=== PATIENT | male | born 1990 | race Hispanic/Latino ===

== ENCOUNTER 2019-07-13 17:55 | Emergency (ER) | payer SELFPAY ==
[2019-07-13] MEDS ORDERED: LORazepam 2 MG/ML VIAL ONE (18:16)
[2019-07-13] MEDS ORDERED: NA CHLORIDE 0.9% 1,000 ML ONE (18:16)
[2019-07-13] MEDS ORDERED: THIAMINE 200 MG/2 ML INJ ONE (18:16)
[2019-07-13 18:35] LABS: Absolute Lymphocytes (CBC) 2.2 K/uL (0.7-4.9); Basophils % 0.8 % (0-1.3); Hematocrit 46.7 % (39.6-49.0); Lymphocytes % 29.9 % (15.3-44.8); MPV 8.7 fL (7.6-11.3); RBC Red Blood Cell Count 5.41 M/uL (4.33-5.43)
[2019-07-13 18:53] LABS: Urine Blood TRACE (NEG); Urine Glucose NEGATIVE (NEG); Urine Protein 2+ (NEG); Urine pH 5.5 (5.0-7.0)
[2019-07-13 18:57] LABS: ALT/SGPT 44 U/L (12-78); AST/SGOT 24 U/L (15-37); Albumin 3.7 g/dL (3.4-5.0); Alkaline Phosphatase 74 U/L (45-117); BUN Blood Urea Nitrogen 9 mg/dL (7-18); Bicarbonate 26 mmol/L (21-32); Bilirubin Direct < 0.1 mg/dL (0-0.2); Bilirubin Total 0.4 mg/dL (0.2-1.0); Glucose Level 125 mg/dL (74-106); Potassium 3.4 mmol/L (3.5-5.1); Protein, Total 7.7 g/dL (6.4-8.2); Sodium Level 141 mmol/L (136-145)
--- NOTE | 2019-07-13 19:01 | ER ---
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 Coronavirus screen: Proceed with normal triage. Patient denies a cough. Patient denies shortness of breath or difficulty breathing. Patient denies measured and/or subjective temperature greater than 100.4F prior to today's visit. Patient denies travel on a cruise ship or to a country the [facility] currently lists as an affected area. Patient denies contact with known and/or suspected case of COVID-19. Ebola Screen: Patient denies travel to an Ebola-affected area in the 21 days before illness onset. Initial Sepsis Screen: Does the patient meet any 2 criteria? RR > 20 per min. HR > 90 bpm. Does the patient have a suspected source of infection? No. Patient's initial sepsis screen is negative. Risk Assessment: Do you want to hurt yourself or someone else? Patient reports no desire to harm self or others. Onset of symptoms was July 13, 2019. 18:04 Acuity: LEIDA 3 ll1 Historical: - Allergies: 18:06 No Known Allergies; ll1 - Social history:: Smoking status: Patient denies any tobacco usage or history of. Patient uses alcohol, only on a social basis. Patient/guardian denies using street drugs. Screenin:13 Abuse screen: Denies threats or abuse. Nutritional screening: No deficits noted. Tuberculosis screening: No symptoms or risk factors identified. Fall Risk None identified. Assessment: 18:15 General: Appears uncomfortable, Behavior is calm, cooperative. Pain: Denies pain. Neuro: Level of Consciousness is awake, alert, Oriented to person, place, time, situation. Cardiovascular: Heart tones S1 S2 present Capillary refill < 3 seconds Patient's skin is warm and dry. Rhythm is regular. Respiratory: Airway is patent Respiratory effort is even, unlabored, Respiratory pattern is regular, symmetrical. GI: Bowel sounds present X 4 quads. :. : No signs and/or symptoms were reported regarding the genitourinary system. EENT: No signs and/or symptoms were reported regarding the EENT system. Derm: No signs and/or symptoms reported regarding the dermatologic system. Musculoskeletal: No signs and/or symptoms reported regarding the musculoskeletal system. Vital Signs: 18:04 BP 218 / 199; Pulse 97; Resp 22; Pulse Ox 97% ; ll1 19:20 BP 122 / 87 LA (auto/lg); Pulse 96; Resp 20 S; Temp 99.6(TE); Pulse Ox 96% on R/A; Pain jp3 0/10; ED Course: 18:03 Patient arrived in ED. [facility] 18:03 Jeevan Gregorio MD is Attending Physician. [facility] 18:05 Triage completed. 1 18:06 Arm band placed on Patient placed in an exam room, on a stretcher. 1 18:07 Nichole Huizar, RN is Primary Nurse. 18:18 Bed in low position. Call light in reach. Side rails up X 1. Verbal reassurance given. jp3 vehicle monitor technician on. Pulse ox on. NIBP on. 18:18 EKG done, by ED staff, reviewed by Jeevan Gregorio MD. Patient maintains SpO2 saturation jp3 greater than 95% on room air. 19:21 Diet: Patient given juice. Tolerated well. jp3 Administered Medications: 18:30 Drug: NS 0.9% 1000 ml Route: IV; Rate: 1 bolus; Site: right antecubital; 19:38 Follow up: Response: No adverse reaction; IV Status: Completed infusion 18:30 Drug: Thiamine 100 mg Route: IV; Rate: bolus; Site: right antecubital; 19:37 Follow up: Response: No adverse reaction; IV Status: Completed infusion 18:30 Drug: Ativan 1 mg Route: IVP; Site: right antecubital; 19:37 Follow up: Response: No adverse reaction Outcome: 19:01 Discharge ordered by . [facility] 19:38 Patient left the ED. Signatures: Jeevan Gregorio MD MD cha Pisarski, Jacob jp3 Nichole Huizar, RN RN Andrez Moran RN RN [facility]
--- NOTE | 2019-07-13 19:01 | EDPHYS ---
Physician Documentation [facility] Name: Kar Esqueda Age: 29 yrs Sex: Male : 1990 Arrival Date: 07/13/2019 Time: 18:03 Bed 14 Private MD: ED Physician Jeevan Gregorio HPI: 07/12 18:57 This 29 yrs old Male presents to ER via Unassigned with complaints of anxious momo after binge drinking yesterday. 18:57 hx of binge drinking. Onset: The symptoms/episode began/occurred just prior to arrival. momo Severity of symptoms: At their worst the symptoms were mild in the emergency department the symptoms are unchanged. The patient has experienced similar episodes in the past, several times. Historical: - Allergies: 18:06 No Known Allergies; ll1 - Social history:: Smoking status: Patient denies any tobacco usage or history of. Patient uses alcohol, only on a social basis. Patient/guardian denies using street drugs. ROS: 18:58 Constitutional: Negative for fever, chills, and weight loss, Eyes: Negative for injury, ommo pain, redness, and discharge, ENT: Negative for injury, pain, and discharge, Neck: Negative for injury, pain, and swelling, Cardiovascular: Negative for chest pain, palpitations, and edema, Abdomen/GI: Negative for abdominal pain, nausea, vomiting, diarrhea, and constipation, Back: Negative for injury and pain, : Negative for injury, bleeding, discharge, and swelling, MS/Extremity: Negative for injury and deformity, Skin: Negative for injury, rash, and discoloration, Neuro: Negative for headache, weakness, numbness, tingling, and seizure, Allergy/Immunology: Negative for hives, rash, and allergies, Endocrine: Negative for neck swelling, polydipsia, polyuria, polyphagia, and marked weight changes, Hematologic/Lymphatic: Negative for swollen nodes, abnormal bleeding, and unusual bruising. 18:58 Respiratory: Positive for shortness of breath. 18:58 Psych: Positive for anxiety. Exam: 18:58 Constitutional: This is a well developed, well nourished patient who is awake, alert, momo and in no acute distress. Head/Face: Normocephalic, atraumatic. Eyes: Pupils equal round and reactive to light, extra-ocular motions intact. Lids and lashes normal. Conjunctiva and sclera are non-icteric and not injected. Cornea within normal limits. Periorbital areas with no swelling, redness, or edema. ENT: Nares patent. No nasal discharge, no septal abnormalities noted. Tympanic membranes are normal and external auditory canals are clear. Oropharynx with no redness, swelling, or masses, exudates, or evidence of obstruction, uvula midline. Mucous membranes moist. Neck: Trachea midline, no thyromegaly or masses palpated, and no cervical lymphadenopathy. Supple, full range of motion without nuchal rigidity, or vertebral point tenderness. No Meningismus. Chest/axilla: Normal chest wall appearance and motion. Nontender with no deformity. No lesions are appreciated. Cardiovascular: Regular rate and rhythm with a normal S1 and S2. No gallops, murmurs, or rubs. Normal PMI, no JVD. No pulse deficits. Respiratory: Lungs have equal breath sounds bilaterally, clear to auscultation and percussion. No rales, rhonchi or wheezes noted. No increased work of breathing, no retractions or nasal flaring. Abdomen/GI: Soft, non-tender, with normal bowel sounds. No distension or tympany. No guarding or rebound. No evidence of tenderness throughout. Back: No spinal tenderness. No costovertebral tenderness. Full range of motion. Male : Normal genitalia with no discharge or lesions. Skin: Warm, dry with normal turgor. Normal color with no rashes, no lesions, and no evidence of cellulitis. MS/ Extremity: Pulses equal, no cyanosis. Neurovascular intact. Full, normal range of motion. Neuro: Awake and alert, GCS 15, oriented to person, place, time, and situation. Cranial nerves II-XII grossly intact. Motor strength 5/5 in all extremities. Sensory grossly intact. Cerebellar exam normal. Normal gait. Psych: Awake, alert, with orientation to person, place and time. Behavior, mood, and affect are within normal limits. 19:00 ENT: Posterior pharynx: no acute changes, Airway: normal, no evidence of obstruction. momo 19:00 Musculoskeletal/extremity: DVT Exam: No signs of deep vein thrombosis. no pain, no swelling, no tenderness, negative Homans' sign noted on exam, no appreciated bluish discoloration, no erythema, no increased warmth. 19:05 ECG was reviewed by the Attending Physician. [facility] 19:20 Respiratory: the patient does not display signs of respiratory distress, Respirations: momo normal, no acute changes, labored breathing, is not present, asymmetrical chest movement, is not seen, accessory muscle usage, is absent, grunting, is not present, Breath sounds: are clear throughout, Respiratory rate: 22 Vital Signs: 18:04 BP 218 / 199; Pulse 97; Resp 22; Pulse Ox 97% ; ll1 19:20 BP 122 / 87 LA (auto/lg); Pulse 96; Resp 20 S; Temp 99.6(TE); Pulse Ox 96% on R/A; Pain jp3 0/10; MDM: 18:03 Patient medically screened. [facility] 19:00 Data reviewed: vital signs, nurses notes, lab test result(s), EKG. [facility] 19:03 Differential diagnosis: drug withdrawal. depression. Differential Diagnosis altered [facility] mental status. Data interpreted: school lunch monitor: rate is 97 beats/min, Pulse oximetry: on room air is 97 %. Test interpretation: by ED physician or midlevel provider: ECG. Counseling: I had a detailed discussion with the patient and/or guardian regarding: the historical points, exam findings, and any diagnostic results supporting the discharge/admit diagnosis, the presence of at least one elevated blood pressure reading (>120/80) during this emergency department visit, lab results, radiology results, the need for outpatient follow up, for definitive care, a family practitioner. Medication response: ativan, good. ED course: pt stable, improved, airway protected, no cp , no sob. will refrain from etoh and will follow up. 07/12 18:04 Order name: Acetaminophen; Complete Time: 19: [facility] 07/12 18:04 Order name: Basic Metabolic Panel; Complete Time: 19: [facility] 07/12 18:04 Order name: CBC with Diff; Complete Time: 18:55 [facility] 07/12 18:04 Order name: ETOH Level; Complete Time: 18:55 [facility] 07/12 18:04 Order name: Hepatic Function; Complete Time: 19: [facility] 07/12 18:04 Order name: PT-INR; Complete Time: 18:55 [facility] 07/12 18:04 Order name: Ptt, Activated; Complete Time: 18:55 [facility] 07/12 18: Order name: Salicylate; Complete Time: 18:55 [facility] 07/12 18:04 Order name: Urine Drug Screen; Complete Time: 19:07 [facility] 07/12 18:04 Order name: EKG; Complete Time: 18:05 [facility] 07/12 18:43 Order name: Urine Dipstick--Ancillary (enter results); Complete Time: 18:55 07/12 18:04 Order name: EKG - Nurse/Tech; Complete Time: 18:19 [facility] 07/12 18:04 Order name: IV Saline Lock; Complete Time: 19:37 [facility] 07/12 18:04 Order name: Labs collected and sent; Complete Time: 19:37 [facility] 07/12 18:04 Order name: Urine Dipstick-Ancillary (obtain specimen); Complete Time: 19:37 [facility] 07/12 19:08 Order name: Vital Signs; Complete Time: 19:20 [facility] 07/12 19:08 Order name: PO challenge: juice; Complete Time: 19:20 momo EC:05 Rate is 99 beats/min. Rhythm is regular. QRS [place] is Normal. RI interval is normal. QRS momo interval is normal. QT interval is normal. No Q waves. T waves are Normal. No ST changes noted. Clinical impression: Normal ECG, NSR w/ Non-specific ST/T Changes, and No evidence of ischemia. Interpreted by me. Reviewed by me. Administered Medications: 18:30 Drug: NS 0.9% 1000 ml Route: IV; Rate: 1 bolus; Site: right antecubital; 19:38 Follow up: Response: No adverse reaction; IV Status: Completed infusion 18:30 Drug: Thiamine 100 mg Route: IV; Rate: bolus; Site: right antecubital; 19:37 Follow up: Response: No adverse reaction; IV Status: Completed infusion 18:30 Drug: Ativan 1 mg Route: IVP; Site: right antecubital; 19:37 Follow up: Response: No adverse reaction Disposition: 07/13/19 19:01 Discharged to Home. Impression: Anxiety disorder, unspecified, Alcohol abuse, Essential (primary) hypertension. - Condition is Stable. - Discharge Instructions: Panic Attacks, Alcohol Use Disorder, Hypertension, Hypertension, [id number], How to Take Your Blood Pressure, [id number], Panic Attacks, [id number], Managing Your Hypertension. - Prescriptions for Benadryl 25 mg Oral Capsule - take 1 capsule by ORAL route every 6 hours As needed; 30 tablet. - Medication Reconciliation Form, Thank You Letter, Antibiotic Education, Prescription Opioid Use form. - Follow up: Private Physician; When: 2 - 3 days; Reason: Recheck today's complaints, Continuance of care, Re-evaluation by your physician. - Problem is new. - Symptoms have improved. Signatures: Dispatcher [employer] EDIL Jeevan Gregorio MD MD cha Harris, Amy RN RN Andrez Moran RN RN ll1 Corrections: (The following items were deleted from the chart) 19:01 19:01 07/13/2019 19:01 Discharged to Home. Impression: Anxiety disorder, unspecified; momo Alcohol abuse. Condition is Stable. Forms are Medication Reconciliation Form, Thank You Letter, Antibiotic Education, Prescription Opioid Use. Follow up: Private Physician; When: 2 - 3 days; Reason: Recheck today's complaints, Continuance of care, Re-evaluation by your physician. Problem is new. Symptoms have improved. [facility] 19:38 19:07/13/2019 19:01 Discharged to Home. Impression: Anxiety disorder, unspecified; Alcohol abuse; Essential (primary) hypertension. Condition is Stable. Forms are Medication Reconciliation Form, Thank You Letter, Antibiotic Education, Prescription Opioid Use. Follow up: Private Physician; When: 2 - 3 days; Reason: Recheck today's complaints, Continuance of care, Re-evaluation by your physician. Problem is new. Symptoms have improved. momo
[2019-07-13 19:05] LABS: Barbiturates NEGATIVE (NEGATIVE); Benzodiazepines NEGATIVE (NEGATIVE); Cocaine NEGATIVE (NEGATIVE); METHAMPHETAM NEGATIVE (NEGATIVE); Methadone NEGATIVE (NEGATIVE); Opiates NEGATIVE (NEGATIVE); Phencyclidine NEGATIVE (NEGATIVE); THC Cannibis NEGATIVE (NEGATIVE)
[2019-07-13 20:23] VITALS: BP 122/87; TEMP 99.6; O2SAT 96
--- NOTE | 2019-07-14 18:47 | EKG ---
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
== END 2019-07-13 19:38 | disposition home or self-care (01) ==
LOC: ER 17:55
DX: F41.9 Anxiety disorder, unspecified (principal); I10 Essential (primary) hypertension; F10.10 Alcohol abuse, uncomplicated
CPT/HCPCS: 36415; 80048; 80076; 80307; 80320; 80329; 81003; 85025; 85610; 85730; 93005; 96365; 96375; 99284; J3411; J7030

== ENCOUNTER 2019-07-18 00:31 | Emergency (ER) | payer SELFPAY ==
[2019-07-18 01:28] LABS: Absolute Lymphocytes (CBC) 2.7 K/uL (0.7-4.9); Basophils % 0.7 % (0-1.3); Hematocrit 49.2 % (39.6-49.0); Lymphocytes % 27.8 % (15.3-44.8); MPV 8.7 fL (7.6-11.3); RBC Red Blood Cell Count 5.67 M/uL (4.33-5.43)
[2019-07-18 01:35] LABS: Protime INR 0.95
[2019-07-18 01:48] LABS: ALT/SGPT 42 U/L (12-78); AST/SGOT 19 U/L (15-37); Albumin 3.8 g/dL (3.4-5.0); Alkaline Phosphatase 80 U/L (45-117); BUN Blood Urea Nitrogen 18 mg/dL (7-18); Bicarbonate 28 mmol/L (21-32); Bilirubin Direct < 0.1 mg/dL (0-0.2); Bilirubin Total 0.2 mg/dL (0.2-1.0); CKMB Creatine Kinase MB < 1.0 ng/mL (0.3-3.6); Creatine Phosphokinase 82 U/L (39-308); Glucose Level 126 mg/dL (74-106); Lipase 364 U/L (73-393); Magnesium 2.1 mg/dL (1.8-2.4); Potassium 3.9 mmol/L (3.5-5.1); Sodium Level 139 mmol/L (136-145); Troponin (Emerg Dept Use Only) < 0.02 ng/mL (0.0-0.045)
[2019-07-18 01:52] LABS: NT PRO-BNP < 5 pg/mL (<125)
--- NOTE | 2019-07-18 03:16 | ER ---
Nurse's Notes [facility] Name: Kar Esqueda Age: 29 yrs Sex: Male : 1990 Arrival Date: 07/18/2019 Time: 00:33 Bed 5 Private MD: Diagnosis: Dyspnea, unspecified Presentation: 07/17 00:42 Chief complaint: Patient states: I feel SOB and am having right upper stomach pain. 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 I vomited 5 times before I got here. The pain in my stomach gets worse when I drink alcohol, and when I eat fried foods. Coronavirus screen: Proceed with normal triage. Ebola Screen: No symptoms or risks identified at this time. Initial Sepsis Screen: Does the patient meet any 2 criteria? No. Patient's initial sepsis screen is negative. Does the patient have a suspected source of infection? No. Patient's initial sepsis screen is negative. Risk Assessment: Do you want to hurt yourself or someone else? Patient reports no desire to harm self or others. Onset of symptoms was July 14, 2019. Transition of care: patient was not received from another setting of care. 00:42 Method Of Arrival: Ambulatory jb4 00:42 Acuity: LEIDA 3 jb4 Historical: - Allergies: 00:46 No Known Allergies; jb4 - Home Meds: 00:46 None [Active]; jb4 - PMHx: 00:46 None; jb4 - PSHx: 00:46 None; jb4 - Immunization history:: Adult Immunizations up to date. - Social history:: Smoking status: Patient denies any tobacco usage or history of. Patient uses alcohol, weekly. Patient/guardian denies using street drugs. Screenin:47 Abuse screen: Denies threats or abuse. Nutritional screening: No deficits noted. jb4 Tuberculosis screening: No symptoms or risk factors identified. Fall Risk None identified. Assessment: 00:47 General: Appears in no apparent distress. uncomfortable, Behavior is cooperative, jb4 anxious. Pain: Complains of pain in right upper quadrant Pain does not radiate. Pain currently is 5 out of 10 on a pain scale. Pain began 3-4 days ago Is continuous. Neuro: Level of Consciousness is awake, alert, obeys commands, Oriented to person, place, time, situation. Cardiovascular: Heart tones S1 S2 present Patient's skin is warm and dry. Rhythm is sinus rhythm. Respiratory: Airway is patent Respiratory effort is even, unlabored, Respiratory pattern is regular, symmetrical, Breath sounds are clear bilaterally. GI: Abdomen is round non-distended, Bowel sounds present X 4 quads. Abd is soft X 4 quads Abd is non tender in epigastric area, umbilical area, suprapubic area, left upper quadrant, right lower quadrant and left lower quadrant Abdomen is tender to palpation in right upper quadrant Reports nausea. : No signs and/or symptoms were reported regarding the genitourinary system. EENT: No signs and/or symptoms were reported regarding the EENT system. Derm: Skin is intact, Skin is pink, warm \T\ dry. Musculoskeletal: Circulation, motion, and sensation intact. Range of motion: intact in all extremities. 02:00 Reassessment: Patient appears in no apparent distress at this time. Patient and/or jb4 family updated on plan of care and expected duration. Pain level reassessed. Patient is alert, oriented x 3, equal unlabored respirations, skin warm/dry/pink. 03:28 Reassessment: Patient appears in no apparent distress at this time. Patient and/or jb4 family updated on plan of care and expected duration. Pain level reassessed. Patient is alert, oriented x 3, equal unlabored respirations, skin warm/dry/pink. Patient states feeling better. Vital Signs: 00:42 BP 147 / 106; Pulse 87; Resp 16; Temp 98.5(O); Pulse Ox 99% on R/A; Weight 95.25 kg jb4 (R); Height 5 ft. 8 in. (172.72 cm) (R); Pain 5/10; 02:00 BP 118 / 86; Pulse 89; Resp 16; Pulse Ox 96% on R/A; jb4 03:25 BP 111 / 83; Pulse 80; Resp 16; Pulse Ox 96% ; jb4 00:42 Body Mass Index 31.93 (95.25 kg, 172.72 cm) 4 ED Course: 00:33 Patient arrived in ED. cl3 00:42 Misbah Griggs RN is Primary Nurse. jb4 00:44 Mike Hodge MD is Attending Physician. 7 00:45 Triage completed. jb4 00:46 Arm band placed on right wrist. jb4 00:47 Patient has correct armband on for positive identification. Placed in gown. Bed in low jb4 position. Call light in reach. Side rails up X 1. telemetry monitor on. Pulse ox on. NIBP on. 01:15 Inserted saline lock: 18 gauge in right antecubital area, using aseptic technique. jb4 Blood collected. 01:15 Initial lab(s) drawn, by me, sent to lab. First set of blood cultures drawn by me. jb4 01:30 Second set of blood cultures drawn by me. jb4 02:47 Chest Pa And Lat (2 Views) XRAY In Process Unspecified. EDMS 03:25 No provider procedures requiring assistance completed. IV discontinued, intact, jb4 bleeding controlled, No redness/swelling at site. Pressure dressing applied. Administered Medications: No medications were administered Outcome: 03:15 Discharge ordered by . [email or web address] 03:25 Discharged to home ambulatory, with family. jb4 03:25 Condition: stable 03:25 Discharge instructions given to patient, Instructed on discharge instructions, follow up and referral plans. Demonstrated understanding of instructions, follow-up care. 03:28 Patient left the ED. jb4 Signatures: Dispatcher [employer] EDMisbah Olsen RN RN flor4 Sagar Moran cl3 Mike Hodge MD MD [email or web address] Corrections: (The following items were deleted from the chart) 02:00 00:47 Cardiovascular: Heart tones S1 S2 present Patient's skin is warm and dry. jb4 jb4 02:41 01:45 BP 135 / 79; Pulse 69bpm; Resp 18bpm; Pulse Ox 98% RA; jb4 jb4
--- NOTE | 2019-07-18 03:16 | EDPHYS ---
Physician Documentation [facility] Name: Kar Esqueda Age: 29 yrs Sex: Male : 1990 Arrival Date: 07/18/2019 Time: 00:33 Bed 5 Private MD: ED Physician Mike Hodge HPI: 07/17 01:00 This 29 yrs old Male presents to ER via Ambulatory with complaints of mh7 Breathing Difficulty. 01:00 The patient has shortness of breath at rest. mh7 01:01 Onset: The symptoms/episode began/occurred gradually, 5 day(s) ago. Duration: The mh7 symptoms are intermittent, with no pattern. The patient's shortness of breath is aggravated by nothing, is alleviated by nothing. Associated signs and symptoms: Pertinent negatives: chest pain, non-productive cough, productive cough, diaphoresis, dizziness, fever, hemoptysis, loss of consciousness, nausea, numbness in extremities, visual changes, vomiting. Severity of symptoms: At their worst the symptoms were moderate today, in the emergency department the symptoms have improved moderately. The patient has been recently seen at the [facility] Emergency Department, last week. Patient states that he has had difficulty breathing intermittently for 5 days. He states that he also gets cramping in his hands when it occurs. He denies any fever, chest pain, nausea, vomiting, sick contacts or recent travel.. Historical: - Allergies: 00:46 No Known Allergies; jb4 - Home Meds: 00:46 None [Active]; jb4 - PMHx: 00:46 None; jb4 - PSHx: 00:46 None; jb4 - Immunization history:: Adult Immunizations up to date. - Social history:: Smoking status: Patient denies any tobacco usage or history of. Patient uses alcohol, weekly. Patient/guardian denies using street drugs. ROS: 01:01 Constitutional: Negative for fever, chills, and weight loss, Eyes: Negative for injury, mh7 pain, redness, and discharge, ENT: Negative for injury, pain, and discharge, Neck: Negative for injury, pain, and swelling, Cardiovascular: Negative for chest pain, palpitations, and edema, Abdomen/GI: Negative for abdominal pain, nausea, vomiting, diarrhea, and constipation, Back: Negative for injury and pain, : Negative for injury, bleeding, discharge, and swelling, MS/Extremity: Negative for injury and deformity, Skin: Negative for injury, rash, and discoloration, Neuro: Negative for headache, weakness, numbness, tingling, and seizure, Psych: Negative for depression, anxiety, suicide ideation, homicidal ideation, and hallucinations, Allergy/Immunology: Negative for hives, rash, and allergies, Endocrine: Negative for neck swelling, polydipsia, polyuria, polyphagia, and marked weight changes, Hematologic/Lymphatic: Negative for swollen nodes, abnormal bleeding, and unusual bruising. Exam: 01:01 Constitutional: This is a well developed, well nourished patient who is awake, alert, mh7 and in no acute distress. Head/Face: Normocephalic, atraumatic. Eyes: Pupils equal round and reactive to light, extra-ocular motions intact. Lids and lashes normal. Conjunctiva and sclera are non-icteric and not injected. Cornea within normal limits. Periorbital areas with no swelling, redness, or edema. ENT: Nares patent. No nasal discharge, no septal abnormalities noted. Tympanic membranes are normal and external auditory canals are clear. Oropharynx with no redness, swelling, or masses, exudates, or evidence of obstruction, uvula midline. Mucous membranes moist. Neck: Trachea midline, no thyromegaly or masses palpated, and no cervical lymphadenopathy. Supple, full range of motion without nuchal rigidity, or vertebral point tenderness. No Meningismus. Chest/axilla: Normal chest wall appearance and motion. Nontender with no deformity. No lesions are appreciated. Cardiovascular: Regular rate and rhythm with a normal S1 and S2. No gallops, murmurs, or rubs. Normal PMI, no JVD. No pulse deficits. 01:01 Abdomen/GI: Soft, non-tender, with normal bowel sounds. No distension or tympany. No guarding or rebound. No evidence of tenderness throughout. Back: No spinal tenderness. No costovertebral tenderness. Full range of motion. Skin: Warm, dry with normal turgor. Normal color with no rashes, no lesions, and no evidence of cellulitis. MS/ Extremity: Pulses equal, no cyanosis. Neurovascular intact. Full, normal range of motion. Neuro: Awake and alert, GCS 15, oriented to person, place, time, and situation. Cranial nerves II-XII grossly intact. Motor strength 5/5 in all extremities. Sensory grossly intact. Cerebellar exam normal. Normal gait. Psych: Awake, alert, with orientation to person, place and time. Behavior, mood, and affect are within normal limits. 01:01 Respiratory: the patient does not display signs of respiratory distress, Respirations: normal, Breath sounds: are clear throughout, Respiratory rate: Normal 03:16 ECG was reviewed by the Attending Physician. [facility] Vital Signs: 00:42 BP 147 / 106; Pulse 87; Resp 16; Temp 98.5(O); Pulse Ox 99% on R/A; Weight 95.25 kg jb4 (R); Height 5 ft. 8 in. (172.72 cm) (R); Pain 5/10; 02:00 BP 118 / 86; Pulse 89; Resp 16; Pulse Ox 96% on R/A; jb4 03:25 BP 111 / 83; Pulse 80; Resp 16; Pulse Ox 96% ; jb4 00:42 Body Mass Index 31.93 (95.25 kg, 172.72 cm) jb4 MDM: 00:44 Patient medically screened. [facility] 03:10 Differential diagnosis: Anemia Anxiety Reaction asthma, Bronchitis Myocardial [facility] Infarction pneumonia, Pneumothorax Psychogenic pulmonary edema, Pulmonary Embolism reactive airway disease. Data reviewed: vital signs, nurses notes, old medical records, lab test result(s), cardiac enzymes, CBC, EKG, radiologic studies, plain films. 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 Interpretation: normal. Counseling: I had a detailed discussion with the patient and/or guardian regarding: the historical points, exam findings, and any diagnostic results supporting the discharge/admit diagnosis, lab results, radiology results, the need for outpatient follow up. ED course: Feels better, NAD, VSS, no focal neurological deficits. No SOB, chest pain, nausea, vomiting, or other complaints. Discussed all test results and findings with the patient and answered all of his questions. He will follow up with his doctor in the next 1-2 days but return to the ED if worsening of symptoms or other concerns.. 07/17 00:58 Order name: Blood Culture Adult (2) mh07/17 00:58 Order name: BMP [facility] 07/17 00:58 Order name: CBC with Diff 07/17 00:58 Order name: Ckmb [facility] 07/17 00:58 Order name: CPK [facility] 07/17 00:58 Order name: D-Dimer; Complete Time: 01:57 [facility] 07/17 00:58 Order name: Hepatic Function; Complete Time: 01:56 [facility] 07/17 00:58 Order name: Lipase; Complete Time: 01:57 [facility] 07/17 00:58 Order name: Magnesium; Complete Time: 01:57 07/17 00:58 Order name: NT PRO-BNP; Complete Time: 01:57 [facility] 07/17 00:58 Order name: PT-INR; Complete Time: :57 [facility] 07/17 00:58 Order name: Ptt, Activated; Complete Time: 01:57 [facility] 07/17 00:58 Order name: Troponin (emerg Dept Use Only); Complete Time: 01:57 [facility] 07/17 00:58 Order name: Blood Culture [facility] 07/17 00:58 Order name: EKG; Complete Time: 00:59 [facility] 07/17 00:58 Order name: Cardiac monitoring; Complete Time: 01:50 07/17 00:58 Order name: EKG - Nurse/Tech; Complete Time: 01:50 07/17 00:58 Order name: IV Saline Lock; Complete Time: 01:37 [facility] 07/17 00:58 Order name: Labs collected and sent; Complete Time: 01:37 [facility] 07/17 00:58 Order name: O2 Per Protocol; Complete Time: 01:37 07/17 00:58 Order name: O2 Sat Monitoring; Complete Time: 01:36 07/17 00:58 Order name: Basic Metabolic Panel; Complete Time: 01:56 [facility] 07/17 00:58 Order name: CBC with Automated Diff; Complete Time: :57 [facility] 07/17 00:58 Order name: CKMB Creatine Kinase MB; Complete Time: 01:57 [facility] 07/17 00:58 Order name: Creatine Phosphokinase; Complete Time: 01:57 [facility] 07/17 02:26 Order name: Chest Pa And Lat (2 Views) XRAY 7 EC:16 Rate is 83 beats/min. Rhythm is regular. QRS [place] is Normal. VA interval is normal. QRS mh7 interval is normal. QT interval is normal. No Q waves. T waves are Normal. No ST changes noted. Clinical impression: Normal ECG. Administered Medications: No medications were administered Disposition: 07/18/19 03:15 Discharged to Home. Impression: Dyspnea, unspecified. - Condition is Stable. - Discharge Instructions: Shortness of Breath, [id number]. - Medication Reconciliation Form, Thank You Letter, Antibiotic Education, Prescription Opioid Use form. - Follow up: Private Physician; When: 1 - 2 days; Reason: Worsening of condition, Re-evaluation by your physician. - Problem is an ongoing problem. - Symptoms are resolved. Signatures: Dispatcher [employer] [facility] Misbah Griggs RN RN jb4 Mike Hodge MD MD mh7 Corrections: (The following items were deleted from the chart) 02:07 01:10 D-DIMER+COAG.LAB.BRZ ordered. [facility] 03:28 03:15 07/18/2019 03:15 Discharged to Home. Impression: Dyspnea, unspecified. Condition jb4 is Stable. Forms are Medication Reconciliation Form, Thank You Letter, Antibiotic Education, Prescription Opioid Use. Follow up: Private Physician; When: 1 - 2 days; Reason: Worsening of condition, Re-evaluation by your physician. Problem is an ongoing problem. Symptoms are resolved. mh7
[2019-07-18 03:33] VITALS: TEMP 98.5
[2019-07-18 03:34] VITALS: O2SAT 96
[2019-07-18 03:35] VITALS: BP 111/83
--- NOTE | 2019-07-18 08:34 | RAD REPORT ---
EXAM DESCRIPTION: RAD - Chest Pa And Lat (2 Views) - 07/18/2019 2:49 am CLINICAL HISTORY: DYSPNEA COMPARISON: None TECHNIQUE: Frontal and lateral views of the chest were obtained. FINDINGS: The lungs are clear. Heart size is normal and central vasculature is within normal limit s. No pleural effusion or pneumothorax seen. No acute bony finding noted. No aortic abnormality. IMPRESSION: No acute cardiopulmonary process.
--- NOTE | 2019-07-18 11:21 | EKG ---
Test Date: 2019-07-18 Test Time: 01:43:21 Network Operations Center Engineer: EFRAIN MEASUREMENT RESULTS: Intervals: Rate: 83 MS: 138 QRSD: 82 QT: 334 QTc: 392 [place]: P: 33 MS: 138 QRS: 50 T: 0 INTERPRETIVE STATEMENTS: Normal sinus rhythm Normal ECG Compared to ECG 07/13/2019 18:15:56 No significant changes Electronically Signed On 07-18-19 11:21:11 CDT by Jamal Cotter
== END 2019-07-18 03:28 | disposition home or self-care (01) ==
LOC: ER 00:31
DX: R06.00 Dyspnea, unspecified (principal)
CPT/HCPCS: 36415; 71046; 80048; 80076; 82550; 82553; 83690; 83735; 83880; 84484; 85025; 85379; 85610; 85730; 87040; 93005; 99284

== ENCOUNTER 2020-03-28 12:47 | Emergency (ER) | payer SELFPAY ==
--- NOTE | 2020-03-28 14:39 | ER ---
Nurse's Notes 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 He started breathing fast, getting shaky, and his hands and fingers got stiff. It happened before when he was drinking all night but he did not drink today. He drank beer last night but stopped at 2330, he didn't drink heavy last nigh, had a lot water and he ate. Pt appears anxious in triage. Coronavirus screen: Client denies travel out of the [place] in the last 14 days. difficulty breathing, Client presents with at least one sign or symptom that may indicate coronavirus-19. Standard/surgical mask placed on the client. Provider contacted for isolation considerations. Ebola Screen: Patient negative for fever greater than or equal to 101.5 degrees Fahrenheit, and additional compatible Ebola Virus Disease symptoms Patient denies exposure to infectious person. Patient denies travel to an Ebola-affected area in the 21 days before illness onset. No symptoms or risks identified at this time. Initial Sepsis Screen: Does the patient meet any 2 criteria? No. Patient's initial sepsis screen is negative. Does the patient have a suspected source of infection? No. Patient's initial sepsis screen is negative. Risk Assessment: Do you want to hurt yourself or someone else? Patient reports no desire to harm self or others. Onset of symptoms was March 28, 2020. 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 Triage Assessment: 12:56 General: Appears in no apparent distress. uncomfortable, Behavior is anxious. Pain: ca1 Complains of pain in anterior aspect of right upper chest Pain radiates to right arm Pain currently is 5 out of 10 on a pain scale. Quality of pain is described as heavy, numb, Pain began 30 min ago. Is intermittent. Neuro: Level of Consciousness is awake, alert, obeys commands, Oriented to person, place, time, situation. 12:56 Respiratory: Respiratory pattern is hyperventilation. ca1 13:09 General: Pt instructed to take slow deep breaths. Pt now appears calm with regular ca1 breathing. . Respiratory: Respiratory effort is even, unlabored, Respiratory pattern is regular, symmetrical. Historical: - Allergies: 12:56 No Known Allergies; ca1 - Home Meds: 12:56 None [Active]; ca1 - PMHx: 12:56 None; ca1 - PSHx: 12:56 None; ca1 - Immunization history:: Flu vaccine is not up to date. - Social history:: Smoking status: Patient denies any tobacco usage or history of. Screenin:30 Abuse screen: Denies threats or abuse. Denies injuries from another. iw Assessment: 14:37 Reassessment: pt not in the lobby, called pt and states he left because he was feeling iw better. 14:56 Reassessment: pt called back and stated he was coming back, he just went to get food iw but wants to come back now. 15:30 General: Appears in no apparent distress. comfortable, Behavior is calm, cooperative. iw Pain: Denies pain. Neuro: Level of Consciousness is awake, alert, obeys commands, Oriented to person, place, time, situation, Moves all extremities. Cardiovascular: Patient's skin is warm and dry. Respiratory: Respiratory effort is even, unlabored, Respiratory pattern is regular, symmetrical. GI: No signs and/or symptoms were reported involving the gastrointestinal system. Derm: Skin is intact, is healthy with good turgor. Musculoskeletal: Range of motion: intact in all extremities. 16:30 Reassessment: Patient appears in no apparent distress at this time. Patient and/or iw family updated on plan of care and expected duration. Pain level reassessed. Patient is alert, oriented x 3, equal unlabored respirations, skin warm/dry/pink. Vital Signs: 12:50 BP 147 / 96; Pulse 99; Resp 22 S; Temp 97.1(TE); Pulse Ox 99% on R/A; Weight 95.25 kg ca1 (R); Height 5 ft. 8 in. (172.72 cm); Pain 7/10; 16:30 BP 135 / 87; Pulse 89; Resp 16; Pulse Ox 98% on R/A; Pain 0/10; iw 12:50 Body Mass Index 31.93 (95.25 kg, 172.72 cm) ca1 [place] Coma Score: 12:56 Eye Response: spontaneous(4). Verbal Response: oriented(5). Motor Response: obeys ca1 commands(6). Total: 15. ED Course: 12:48 Patient arrived in ED. ag5 12:55 Triage completed. ca1 12:56 Arm band placed on right wrist. ca1 14:33 Valentine Vilchis RN is Primary Nurse. iw 14:35 Wilfrid Carpio NP is PHCP. pm1 14:35 Gagandeep Wilson MD is Attending Physician. pm1 15:10 Wilfrid Carpio NP is PHCP. pm1 15:10 Gagandeep Wilson MD is Attending Physician. pm1 16:25 Initial lab(s) drawn, by nc, sent to lab. Inserted saline lock: 20 gauge in right hand, iw using aseptic technique. 16:28 EKG done, by ED staff, reviewed by Wilfrid Carpio NP. em1 17:06 No provider procedures requiring assistance completed. IV discontinued, intact, iw bleeding controlled, No redness/swelling at site. Pressure dressing applied. Administered Medications: 16:27 Drug: hydrOXYzine 50 mg Route: PO; iw 16:28 Drug: NS 0.9% 1000 ml Route: IV; Rate: 1000 ml; Site: right hand; iw Outcome: 14:38 Patient left the ED. iw 17:07 Discharge ordered by MD. pm1 17:35 Discharged to home ambulatory, with family. iw 17:35 Condition: good 17:35 Discharge instructions given to patient, Instructed on discharge instructions, follow up and referral plans. Demonstrated understanding of instructions, follow-up care, medications, Prescriptions given X 1. 17:36 Patient left the ED. iw Signatures: Valentine Vilchis RN RN iw Jose Almanzar em1 Wilfrid Carpio NP SECURITY DIRECTOR pm1 Judy Younger RN RN ca1 Maureen Massey ag5 Corrections: (The following items were deleted from the chart) 20:00 14:38 Eloped from waiting room, before seeing physician Time discovered patient gone: iw March 28, 2020 at 14:38 iw
[2020-03-28 14:42] VITALS: BP 147/96; TEMP 97.1; O2SAT 99
[2020-03-28 16:18] LABS: Absolute Lymphocytes (CBC) 1.5 K/uL (0.7-4.9); Basophils % 0.6 % (0-1.3); Hematocrit 47.3 % (39.6-49.0); Lymphocytes % 16.1 % (15.3-44.8); MPV 8.9 fL (7.6-11.3)
[2020-03-28] MEDS ORDERED: NA CHLORIDE 0.9% 1,000 ML ONE (16:30)
[2020-03-28] MEDS ORDERED: hydrOXYzine HCL 25 MG TAB ONE (16:30)
[2020-03-28 16:31] LABS: Protime INR 1.02
[2020-03-28 16:45] LABS: ALT/SGPT 35 U/L (12-78); Albumin 3.7 g/dL (3.4-5.0); Alkaline Phosphatase 70 U/L (45-117); BUN Blood Urea Nitrogen 11 mg/dL (7-18); Bicarbonate 26 mmol/L (21-32); Bilirubin Direct < 0.1 mg/dL (0-0.2); Bilirubin Total 0.4 mg/dL (0.2-1.0); Glucose Level 99 mg/dL (74-106); Protein, Total 7.7 g/dL (6.4-8.2); Sodium Level 138 mmol/L (136-145)
[2020-03-28 16:52] LABS: AST/SGOT 28 U/L (15-37); Potassium 4.2 mmol/L (3.5-5.1)
[2020-03-28 17:01] LABS: Barbiturates NEGATIVE (NEGATIVE); Benzodiazepines NEGATIVE (NEGATIVE); Cocaine NEGATIVE (NEGATIVE); METHAMPHETAM NEGATIVE (NEGATIVE); Methadone NEGATIVE (NEGATIVE); Opiates NEGATIVE (NEGATIVE); Phencyclidine NEGATIVE (NEGATIVE); THC Cannibis NEGATIVE (NEGATIVE)
--- NOTE | 2020-03-28 17:08 | EDPHYS ---
Physician Documentation [facility] Name: Kar Esqueda Age: 29 yrs Sex: Male : 1990 Arrival Date: 03/28/2020 Time: 12:48 Bed 26 Private MD: ED Physician Gagandeep Wilson HPI: 03/28 15:15 This 29 yrs old Male presents to ER via Wheelchair with complaints of Probable pm1 Seizure. 15:15 The patient presents the episode(s) was witnessed, by family, . Patient initially pm1 presented to ER earlier bur left because he felt better and wanted to eat. Went to [employer] and returned to the ER when he did not feel like eating. Patient initially came to the ER because he was shopping and did not feel right. He had tingling and cramping in his right hand and then it went to his left. He was hyperventilating and then started getting tingling and cramping to both feet circumoral numbness and then felt like he could not walk. No chest pain or shortness of breath. No focal weakness or difficulty with talking. 15:15 The patient presents to the emergency department with hyperventilation. Onset: The pm1 symptoms/episode began/occurred at 12:30. Associated signs and symptoms: Pertinent negatives: abdominal pain, chest pain, fever, shortness of breath, cough. Severity of symptoms: in the emergency department the symptoms have improved markedly, reports some mild tingling to bilateral hands, Pain is currently a 0 / 10. The patient has not experienced similar symptoms in the past. The patient has not recently seen a physician. Historical: - Allergies: 12:56 No Known Allergies; ca1 - Home Meds: 12:56 None [Active]; ca1 - PMHx: 12:56 None; ca1 - PSHx: 12:56 None; ca1 - Immunization history:: Flu vaccine is not up to date. - Social history:: Smoking status: Patient denies any tobacco usage or history of. ROS: 15:15 Constitutional: Negative for fever, chills, and weight loss, Cardiovascular: Negative pm1 for chest pain, palpitations, and edema, Abdomen/GI: Negative for abdominal pain, nausea, vomiting, diarrhea, and constipation, Back: Negative for injury and pain, MS/Extremity: Negative for injury and deformity, Skin: Negative for injury, rash, and discoloration. 15:15 Respiratory: Positive for hyperventilation, Negative for cough, shortness of breath, wheezing. 15:15 Neuro: Positive for tingling, Negative for headache, numbness, weakness. Exam: 15:15 Constitutional: This is a well developed, well nourished patient who is awake, alert, pm1 and in no acute distress. Head/Face: Normocephalic, atraumatic. Chest/axilla: Normal chest wall appearance and motion. Nontender with no deformity. No lesions are appreciated. Cardiovascular: Regular rate and rhythm with a normal S1 and S2. No gallops, murmurs, or rubs. Normal PMI, no JVD. No pulse deficits. Respiratory: Lungs have equal breath sounds bilaterally, clear to auscultation and percussion. No rales, rhonchi or wheezes noted. No increased work of breathing, no retractions or nasal flaring. Abdomen/GI: Soft, non-tender, with normal bowel sounds. No distension or tympany. No guarding or rebound. No evidence of tenderness throughout. Back: No spinal tenderness. No costovertebral tenderness. Full range of motion. Skin: Warm, dry with normal turgor. Normal color with no rashes, no lesions, and no evidence of cellulitis. MS/ Extremity: Pulses equal, no cyanosis. Neurovascular intact. Full, normal range of motion. 15:15 Neuro: Exam negative for acute changes, Orientation: is normal, Mentation: is normal, Motor: is normal, moves all fours, Sensation: is normal, no obvious gross deficits, Gait: is steady, at a normal pace, without difficulty. 15:15 Psych: Behavior/mood is anxious, Oriented to person, place, time. Vital Signs: 12:50 BP 147 / 96; Pulse 99; Resp 22 S; Temp 97.1(TE); Pulse Ox 99% on R/A; Weight 95.25 kg ca1 (R); Height 5 ft. 8 in. (172.72 cm); Pain 7/10; 16:30 BP 135 / 87; Pulse 89; Resp 16; Pulse Ox 98% on R/A; Pain 0/10; iw 12:50 Body Mass Index 31.93 (95.25 kg, 172.72 cm) ca1 Tiffany Coma Score: 12:56 Eye Response: spontaneous(4). Verbal Response: oriented(5). Motor Response: obeys ca1 commands(6). Total: 15. MDM: 15:11 Patient medically screened. pm1 17:02 Data reviewed: vital signs. Data interpreted: Pulse oximetry: on room air is 99 %. pm1 Interpretation: normal. 17:02 Counseling: I had a detailed discussion with the patient and/or guardian regarding: the pm1 historical points, exam findings, and any diagnostic results supporting the discharge/admit diagnosis, lab results, the need for outpatient follow up, a family practitioner, to return to the emergency department if symptoms worsen or persist or if there are any questions or concerns that arise at home. 03/28 15:18 Order name: Acetaminophen pm1 03/28 15:18 Order name: Basic Metabolic Panel; Complete Time: 16:55 pm1 03/28 15:18 Order name: CBC with Diff; Complete Time: 16:35 pm1 03/28 15:18 Order name: ETOH Level; Complete Time: 16:46 pm1 03/28 15:18 Order name: Hepatic Function; Complete Time: 16:55 pm1 03/28 15:18 Order name: PT-INR; Complete Time: 16:35 pm1 03/28 13:01 Order name: EKG; Complete Time: 13:01 ca1 03/28 15:18 Order name: Ptt, Activated; Complete Time: 16:35 pm1 03/28 15:18 Order name: Salicylate; Complete Time: 16:55 pm1 03/28 15:18 Order name: Urine Drug Screen; Complete Time: 17:02 pm1 03/28 15:18 Order name: Acetaminophen Level; Complete Time: 16:55 EDMS 03/28 16:48 Order name: Urine Dipstick--Ancillary (enter results); Complete Time: 17:31 eb 03/28 13:01 Order name: EKG - Nurse/Tech; Complete Time: 13:08 ca1 03/28 15:18 Order name: IV Saline Lock; Complete Time: 16:28 pm1 03/28 15:18 Order name: Labs collected and sent; Complete Time: 16:28 pm1 03/28 15:18 Order name: Urine Dipstick-Ancillary (obtain specimen); Complete Time: 16:39 pm1 Administered Medications: 16:27 Drug: hydrOXYzine 50 mg Route: PO; iw 16:28 Drug: NS 0.9% 1000 ml Route: IV; Rate: 1000 ml; Site: right hand; Disposition: 17:56 Co-signature as Attending Physician, Gagandeep Wilson MD. rn Disposition: 03/28/20 17:07 Discharged to Home. Impression: Hyperventilation, Anxiety disorder, unspecified. - Condition is Stable. - Discharge Instructions: Hyperventilation, Generalized Anxiety Disorder. - Prescriptions for Hydroxyzine HCl 50 mg Oral Tablet - take 1 tablet by ORAL route every 8 hours As needed; 20 tablet. - Medication Reconciliation Form, Thank You Letter, Antibiotic Education, Prescription Opioid Use, Work release form form. - Follow up: Emergency Department; When: As needed; Reason: Worsening of condition. Follow up: Private Physician; When: 2 - 3 days; Reason: Recheck today's complaints, Continuance of care, Re-evaluation by your physician. - Problem is new. - Symptoms have improved. Signatures: Dispatcher [employer] Valentine Hurt RN RN iw Gagandeep Wilson MD MD rn Marinas, Patrick, ERICH ACOUSTICAL ENGINEER pm1 Judy Younger RN RN ca1 Corrections: (The following items were deleted from the chart) 14:38 14:38 03/28/2020 14:38 Patient left the facility post triage evaluation and consult. iw Reason stated they are leaving due to (see nurse's notes). iw 15:03 14:38 03/28/2020 14:38 Patient left the facility post triage evaluation and consult. iw Reason stated they are leaving due to (see nurse's notes). iw 17:36 17:07 03/28/2020 17:07 Discharged to Home. Impression: Hyperventilation; Anxiety iw disorder, unspecified. Condition is Stable. Forms are Medication Reconciliation Form, Thank You Letter, Antibiotic Education, Prescription Opioid Use. Follow up: Emergency Department; When: As needed; Reason: Worsening of condition. Follow up: Private Physician; When: 2 - 3 days; Reason: Recheck today's complaints, Continuance of care, Re-evaluation by your physician. Problem is new. Symptoms have improved. pm1
[2020-03-28 17:29] LABS: Urine Blood NEGATIVE (NEG); Urine Glucose NEGATIVE (NEG); Urine Protein NEGATIVE (NEG); Urine Specific Gravity 1.015 (1.005-1.030); Urine pH 6.5 (5.0-7.0)
--- NOTE | 2020-03-29 07:31 | EKG ---
Test Date: 2020-03-28 Test Time: 13:05:27 Weaving Teacher: LETTY MEASUREMENT RESULTS: Intervals: Rate: 94 MO: 138 QRSD: 88 QT: 336 QTc: 420 [place]: P: 31 MO: 138 QRS: 76 T: 11 INTERPRETIVE STATEMENTS: Normal sinus rhythm Normal ECG Compared to ECG 07/18/2019 01:43:21 No significant changes Electronically Signed On 03-29-20 07:30:06 BENCH MOLDER APPRENTICE by Jamal Cotter
== END 2020-03-28 17:36 | disposition home or self-care (01) ==
LOC: ER 12:47
DX: F41.9 Anxiety disorder, unspecified (principal)
CPT/HCPCS: 36415; 80048; 80076; 80307; 80320; 80329; 81003; 85025; 85610; 85730; 93005; 99284; J7030